=== PATIENT | male | born 1990 | race Caucasian/White ===

== ENCOUNTER 2018-03-22 12:01 | Emergency (ER) | payer OTHER, SELFPAY ==
[2018-03-22] MEDS ORDERED: ISOVUE-370 76%-LOCM 1 ML ONE (12:28)
[2018-03-22] MEDS ORDERED: Iopamidol 370 76% 50 ML VIAL FS ONE (12:28)
[2018-03-22 12:44] LABS: #Eosinphils 0.2 thou/uL (0.0-0.7); #Lymphocytes 1.2 thou/uL (1.20-3.40); #Monocytes 0.8 thou/uL (0.11-0.59); #Neutrophils 6.6 thou/uL (1.40-6.50); %Basophils 0.3 % (0.0-1.0); %Lymphocytes 13.8 % (21.0-51.0); %Monocytes 9.4 % (0.0-10.0); %Neutrophils 74.5 % (42.0-75.0); Hemoglobin 10.9 g/dL (14.0-18.0); Mean Corpuscular Hemoglobin 27.2 pg (27.0-31.0); Mean Corpuscular Volume 82.3 fL (78.0-98.0); Mean Platelet Volume 5.9 fL (7.4-10.4); Platelet Count 669 thou/uL (130-400); RBC Distribution Width 12.3 % (11.5-14.5); Red Blood Cell (RBC) Count 4.01 mill/uL (4.70-6.10); White Blood Cell (WBC) Count 8.9 thou/uL (4.8-10.8)
[2018-03-22] MEDS ORDERED: Ondansetron ODT 4 MG TAB ONE (12:44)
[2018-03-22 13:05] LABS: Bilirubin Negative (Negative); Blood, Urine Negative (Negative); Clarity CLEAR (Clear); Glucose, Urine (Dipstick) Negative (Negative); Leukocyte Negative (Negative); Nitrite Negative (Negative); Protein, Urine (Dipstick) Negative (Neg-Trace); Specific Gravity, Urine 1.026 (1.002-1.036); pH, Urine 5.5 (5.0-9.0)
[2018-03-22 13:14] LABS: ALT (SGPT) 16 U/L (8-55); AST (SGOT) 21 U/L (5-34); Albumin 4.3 g/dL (3.5-5.0); Alkaline Phosphatase 69 U/L (40-150); Anion Gap 15 mmol/L (10-20); BUN (Urea Nitrogen) 8 mg/dL (8.9-20.6); Bilirubin, Total 0.4 mg/dL (0.2-1.2); Calc. Creatinine Clearance 0 mL/min (70-130); Calcium 10.1 mg/dL (7.8-10.44); Carbon Dioxide 29 mmol/L (22-29); Chloride 100 mmol/L (98-107); Estimated GFR-MDRD 69; Glucose 107 mg/dL (70-105); Lipase 11 U/L (8-78); Protein, Total 8.3 g/dL (6.0-8.3); Sodium 140 mmol/L (136-145)
--- NOTE | 2018-03-22 13:40 | CT ---
CT ABDOMEN AND PELVIS WITH CONTRAST: COMPARISON: 02/26/18. HISTORY: Intermittent abdominal pain for weeks. TECHNIQUE: Multiple contiguous axial images were obtained in a CT of the abdomen and pelvis with contrast. Cristal nal reformats were performed. FINDINGS: There is moderate left hydronephrosis and hydroureter. In the distal aspect of the left ureter, ther e is a 3 mm calcification. Contrast is seen in the right renal collecting system. Radiodense materi al is seen in the urinary bladder which may represent contrast. Less likely, this could represent mu ltiple calcifications in the urinary bladder. A stable phlebolith is seen in the right aspect of the pelvis. The liver, gallbladder, adrenal glands, and pancreas are unremarkable. The spleen still has a slight ly heterogeneous appearance from the prior splenic injury. No significant fluid is seen surrounding the spleen. The visualized large and small bowel are unremarkable. No abdominal or pelvic lymphadenopathy is see n. There is a midline scar in the abdominal wall from prior surgery. The visualized inferior thorax is unremarkable. IMPRESSION: 1. Left distal ureteral calcification with moderate left hydronephrosis. 2. Persistently abnormal but improved appearance of the spleen secondary to prior splenic injury. POS: [facility]
[2018-03-22] MEDS ORDERED: Ketorolac Tromethamine 30 MG/ML VIAL ONE (13:49)
[2018-03-22] MEDS ORDERED: Tamsulosin HCl 0.4 MG CAP PO SCH (14:00)
== END 2018-03-22 15:52 | disposition home or self-care (01) ==
LOC: ERS 12:01
DX: N13.2 Hydronephrosis with renal and ureteral calculous obstruction (principal); Z79.899 Other long term (current) drug therapy
CPT/HCPCS: 74177; 80053; 81003; 83690; 85025; 96361; 96374; J1885; Q0162

== ENCOUNTER 2021-07-16 08:37 | Emergency (ER) | payer OTHER, SELFPAY ==
[2021-07-16] MEDS ORDERED: Boostrix 0.5 ML (Tdap) VIAL ONE (09:10)
[2021-07-16] MEDS ORDERED: CEFAZOLIN 1 GM VIAL ONE (09:12)
[2021-07-16] MEDS ORDERED: Ketorolac Tromethamine 30 MG/ML VIAL ONE (09:12)
[2021-07-16] MEDS ORDERED: CEFAZOLIN 1 GM VIAL IM SCH (09:30)
== END 2021-07-16 09:30 | disposition home or self-care (01) ==
LOC: ERS 08:37
DX: S46.292A Other injury of muscle, fascia and tendon of other parts of biceps, left arm, initial encounter (principal); S81.801A Unspecified open wound, right lower leg, initial encounter; S50.812A Abrasion of left forearm, initial encounter; V29.9XXA Motorcycle rider (driver) (passenger) injured in unspecified traffic accident, initial encounter
CPT/HCPCS: 90471; 90715; 96372; 99282; J0690; J1885

== ENCOUNTER 2021-08-10 10:19 | Emergency (ER) | payer SELFPAY | END 2021-08-10 11:37 | disposition left against medical advice (07) | LOC: ERS 10:19 | DX: Z53.21 Procedure and treatment not carried out due to patient leaving prior to being seen by health care provider (principal) ==